=== PATIENT | female | born 1955 | race African-American/Black ===

== ENCOUNTER → 2020-10-15 | Outpatient (CLI) | payer BC ==
[2015-05-01 17:13] VITALS: BP 139/84
[~2020-10-15] MED LIST: HTN
--- NOTE | 2020-10-15 13:50 | KCIC ---
EXAM: Bilateral screening mammogram. HISTORY: 64-year-old female presents for screening mammography. TECHNIQUE: Full-field digital craniocaudal and mediolateral oblique views of both breasts are obtaine d for evaluation. Computer aided detection was applied. COMPARISON: 08/14/2015 BREAST PARENCHYMAL DENSITY: Level B - Scattered fibroglandular densities. FINDINGS: There is no new suspicious mass, microcalcification or region of architectural distortion. There is a stable small nodular density within the lateral aspect of the right breast at mid to poste rior depth. The greater than 5 year course of stability favors benignity. There are benign calcificat ions within the left breast. IMPRESSION: BI-RADS Category 2: Benign finding(s). RECOMMENDATION: Annual mammography is recommended. If your mammogram demonstrates that you have dense breast tissue, which could hide abnormalities, and if you have other risk factors for breast cancer that have been identified, you might benefit from s upplemental screening tests that may be suggested by your ordering physician. Dense breast tissue, i n and of itself, is a relatively common condition. This information is not provided to cause undue c oncern, but rather to raise your awareness and to promote discussion with your physician regarding th e presence of other risk factors, in addition to dense breast tissue. A report of your mammography re sults will be sent to you and your physician. You should contact your physician if you have any ques tions or concerns regarding this report. Mammography is a sensitive method for finding small breast cancers, but it does not detect them all a nd is not a substitute for careful clinical examination. A negative mammogram does not negate a clin ically suspicious finding and should not result in delay in biopsying a clinically suspicious abnorma lity. PQRS compliance statement - Patient information was entered into a reminder system with a target due date for the next mammogram. "Our facility is accredited by the [employer] Mammography [employer]." Electronically signed by: Naomi Kee MD (10/15/2020 1:48 PM) [facility]
--- NOTE | 2020-10-15 14:35 | KCIC ---
INDICATION: Screening for osteopenia/osteoporosis. Postmenopausal evaluation. COMPARISON: None. TECHNIQUE: Bone densitometry was performed through the lumbar spine and proximal femur. IMPRESSION: Lumbar Spine: BMD: 0.88 T-Score: -1.5 Range: Osteopenic Proximal Femur: BMD: 0.76 T-Score: -1.5 Range: Osteopenic World Health Organization Criteria for Bone Density: T-Score: > -1.0: Normal Range < -1.0 to -2.5: Osteopenic Range < -2.5: Osteoporotic Range Electronically signed by: Luther Pate MD (10/15/2020 2:33 PM) [id number]
== END ==
LOC: KCIC MAMMO 12:48
PROVIDERS: ATTEND Internal Medicine
DX: Z12.31 Encounter for screening mammogram for malignant neoplasm of breast (principal); E28.0 Estrogen excess
CPT/HCPCS: 77067; 77080

== ENCOUNTER → 2020-11-06 | Outpatient (CLI) | payer BC ==
[2015-05-01 17:13] VITALS: BP 139/84
--- NOTE | 2020-11-06 09:06 | KCIC ---
EXAM: Renal sonogram. HISTORY: Renal failure. TECHNIQUE: Sonographic imaging the kidneys and bladder was performed. COMPARISON: None. FINDINGS: The kidneys are normal in size. There is a 1.3 cm simple appearing cyst within the mid zone of the right kidney. There is slight left renal cortical lobulation. There is no hydronephrosis. The bladder is unremarkable. IMPRESSION: 1. 1.3 cm simple appearing right renal cyst. Follow up is not routinely performed for simple cysts. 2. Mild left renal cortical lobulation. This may be physiologic or due to scarring. 3. No acute sonographic finding. Electronically signed by: Naomi Kee MD (11/06/2020 9:04 AM) [id number]
== END ==
LOC: KCIC US 08:07
PROVIDERS: ATTEND Internal Medicine
DX: N18.30 Chronic kidney disease, stage 3 unspecified (principal); N28.1 Cyst of kidney, acquired
CPT/HCPCS: 76770